=== PATIENT | male | born 1950 | race Caucasian/White ===

== ENCOUNTER 2016-11-20 00:28 | Emergency (ER) | payer MEDICARE, BC ==
[~2016-11-20] VITALS: Ht 182.9 cm; Wt 89.5 kg
[~2016-11-20 00:28] MED LIST: CYCL-319 PO; HYDR-3498 PO
[2016-11-20 01:00] VITALS: Ht 182.9 cm; Wt 89.5 kg
[2016-11-20] MEDS ORDERED: SOD CHLORIDE 0.9% 1,000 ML IV STA (01:45)
[2016-11-20] MEDS ORDERED: ONDANSETRON 4 MG INJ IV STA (01:45)
[2016-11-20] MEDS ORDERED: morphine 4 MG/ML VIAL IM STA (01:45)
[2016-11-20] MEDS ORDERED: LIDOCAINE 2% 20 ML UROJET SYRINGE MM ONE (02:30)
[2016-11-20 02:42] LABS: ADD SCAN DIFF NO
[2016-11-20 02:45] LABS: BASOPHIL # 0.2 10^3/ul (0.0-0.1); BASOPHILS % 1.4 % (0.0-2.0); EOSINOPHILS # 0.2 10^3/ul (0.0-0.5); EOSINOPHILS % 1.6 % (0.0-7.0); HEMATOCRIT 50.8 % (42.0-52.0); HEMOGLOBIN 17.2 g/dl (14.0-18.0); LYMPHOCYTES # 1.7 10^3/ul (0.8-2.9); LYMPHOCYTES % 16.1 % (15.0-51.0); MEAN CORPUSCULAR HEMOGLOBIN 25.2 pg (29.0-33.0); MEAN CORPUSCULAR HGB CONC 33.9 g/dl (32.0-37.0); MEAN CORPUSCULAR VOLUME 74.4 fl (82.0-101.0); MEAN PLATELET VOLUME 11.2 fl (7.4-10.4); MONOCYTE # 0.8 10^3/ul (0.3-0.9); MONOCYTES % 7.1 % (0.0-11.0); NEUTROPHIL # 7.9 10^3/ul (1.6-7.5); NEUTROPHILS % 72.8 % (39.0-77.0); RED BLOOD COUNT 6.83 10^6/ul (4.70-6.10); RED CELL DISTRIBUTION WIDTH 15.6 % (11.5-14.5); WHITE BLOOD COUNT 10.8 10^3/ul (4.8-10.8)
[2016-11-20 02:57] LABS: ALBUMIN 4.8 g/dl (3.3-4.9)
[2016-11-20 02:58] LABS: POTASSIUM 3.9 mmol/L (3.5-5.1)
[2016-11-20 03:00] LABS: ALBUMIN/GLOBULIN RATIO 1.45; BILIRUBIN,INDIRECT 0.8 mg/dl (0-1.1); BILIRUBIN,TOTAL 0.8 mg/dl (0.2-1.3); CALCIUM 10.8 mg/dl (8.4-10.2); CREATININE 0.84 mg/dl (0.61-1.24); TOTAL PROTEIN 8.1 g/dl (6.1-8.1)
[2016-11-20 03:22] VITALS: TEMP 96.5
[2016-11-20 03:40] LABS: PLATELET COUNT 684 10^3/UL (140-415); PLATELET ESTIMATE PLT APPEAR INCREASED
[2016-11-20 03:57] LABS: ADD UMIC NO; URINE BILIRUBIN (Dip) NEGATIVE (NEGATIVE); URINE BLOOD (Dip) NEGATIVE (NEGATIVE); URINE COLOR LT. YELLOW (YELLOW); URINE KETONES (Dip) 40 (NEGATIVE); URINE LEUKOCYTE ESTERASE (Dip) NEGATIVE (NEGATIVE); URINE NITRITE (Dip) NEGATIVE (NEGATIVE); URINE TOTAL PROTEIN (Dip) NEGATIVE (NEGATIVE); URINE UROBILINOGEN (Dip) 0.2 E.U./dL (0.1-1.0)
[2016-11-20] MEDS ORDERED: LIDO30JE8 MM (05:23)
--- NOTE | 2016-11-20 05:38 | ERD ---
ER Documentation Chief Complaint Date/Time DATE: 11/20/16 TIME: 05:32 Chief Complaint Unable to urinate for 1 week. Pelvic pain. Pt has prostate Ca. HPI This 65-year-old male comes in for inability urinate for 1 week. He denies leg weakness and numbness around the pelvic area. Does state that he had an enlarged prostate in the past which was shrunk with heat. He denies fevers chills or painful urination. He does still have dribbling urination. He does have rectal pain and has a history of hemorrhoids. He denies any blood in his stool. ROS All systems reviewed and are negative except as per history of present illness. Medications Home Meds Active Scripts Lidocaine Hcl (Lidocaine Hcl) 30 Ml Jel, 2 ML MM BID for PAIN, #30 30 ml tube. Apply to affected area Prov:CELINA SWANN DO 11/20/16 Hydrocodone Bit-Acetaminophen* ([place]*) 5-325 Mg Tab, 1 TAB PO Q6 Y for PAIN, # 7 TAB Prov:DILAN GONZALEZ I. SALES AND RETAIL MANAGEMENT RECRUITER 08/02/15 Cyclobenzaprine Hcl* (Cyclobenzaprine Hcl*) 10 Mg Tablet, 10 MG PO TID, #15 TAB Prov:DILAN GONZALEZ I. SALES AND RETAIL MANAGEMENT RECRUITER 08/02/15 Reported Medications [unk] No Conflict Check 12/12/11 Allergies Allergies: Coded Allergies: No Known Allergy (Unverified , 08/02/15) PMhx/Soc Medical and Surgical Hx: pt denies Surgical Hx History of Surgery: No Anesthesia Reaction: No Hx Neurological Disorder: No Hx Respiratory Disorders: No Hx Cardiac Disorders: Yes ([place] 2011) Hx Psychiatric Problems: No Hx Miscellaneous Medical Probl: Yes (DM2, HTN, HYPERCHOLESTEROLEMIA, PROSTATE CA) Hx Alcohol Use: No Hx Substance Use: No Hx Tobacco Use: Yes (1 pack/day) Smoking Status: Former smoker Physical Exam Vitals Vital Signs Date Time Temp Pulse Resp B/P Pulse Ox O2 Delivery O2 Flow Rate FiO2 11/20/16 03:22 96.5 93 22 155/86 100 Room Air 11/20/16 01:00 96.5 55 22 170/99 99 Physical Exam Const: [] No acute distress, patient does prefer to stand because he says his bladder area feels less tense that way Head: Atraumatic Eyes: Normal Conjunctiva ENT: Normal External Ears, Nose and Mouth. Neck: Full range of motion..~ No meningismus. Resp: Clear to auscultation bilaterally Cardio: Regular rate and rhythm, no murmurs Abd: Soft, mild suprapubic tenderness with a feeling of fullness in the suprapubic area, no other abdominal tenderness, non distended. Normal bowel sounds Skin: No petechiae or rashes Back: No midline or flank tenderness Ext: No cyanosis, or edema, 5 out of 5 strength bilateral lower extremities, distal pulses intact. No saddle anesthesia Neur: Awake and alert and oriented 3, no focal deficits Result Diagram: 11/20/1621911/20/16 022 Results 24 hrs Laboratory Tests Test 11/20/16 02:20 11/20/16 03:15 Alanine Aminotransferase (ALT/SGPT) 43IU/L Albumin 4.8g/dl Albumin/Globulin Ratio 1.45 Alkaline Phosphatase 99IU/L Anion Gap 24 Aspartate Amino Transf (AST/SGOT) 38IU/L Basophils # 0.210^3/ul Basophils % 1.4% Blood Urea Nitrogen 17mg/dl Calcium Level 10.8mg/dl Carbon Dioxide Level 22mmol/L Chloride Level 108mmol/L Creatinine 0.84mg/dl Direct Bilirubin 0.00mg/dl Eosinophils # 0.210^3/ul Eosinophils % 1.6% Globulin 3.30g/dl Glucose Level 221mg/dl Hematocrit 50.8% Hemoglobin 17.2g/dl Indirect Bilirubin 0.8mg/dl Large Platelets 1+ Lipase 140U/L Lymphocytes # 1.710^3/ul Lymphocytes % 16.1% Mean Corpuscular Hemoglobin 25.2pg Mean Corpuscular Hemoglobin Concent 33.9g/dl Mean Corpuscular Volume 74.4fl Mean Platelet Volume 11.2fl Monocytes # 0.810^3/ul Monocytes % 7.1% Neutrophils # 7.910^3/ul Neutrophils % 72.8% Nucleated Red Blood Cells # 0.010^3/ul Nucleated Red Blood Cells % 0.0/100WBC Platelet Count 89277^3/UL Platelet Estimate PLT APPEAR INCREASED Potassium Level 3.9mmol/L Red Blood Count 6.8310^6/ul Red Cell Distribution Width 15.6% Sodium Level 150mmol/L Total Bilirubin 0.8mg/dl Total Protein 8.1g/dl White Blood Count 10.810^3/ul Urine Bilirubin NEGATIVE Urine Clarity CLEAR Urine Color LT. YELLOW Urine Glucose 0.1%% Urine Hemoglobin NEGATIVE Urine Ketones 40 Urine Leukocyte Esterase NEGATIVE Urine Nitrite NEGATIVE Urine Specific [place] 1.020 Urine Total Protein NEGATIVE Urine Urobilinogen 0.2 E.U./dL Urine pH 5.5 Current Medications Medications (Trade) Dose Ordered Sig/Raeann Route PRN Reason Start Time Stop Time Status Last Admin Dose Admin Sodium Chloride (NS) 1,000 ml @ 1,000 mls/hr Q1H STAT IV 11/20/16 01:45 11/20/16 02:44 DC 11/20/16 03:25 Morphine Sulfate (morphine) 4 mg ONCE STAT IM 11/20/16 01:45 11/20/16 01:48 DC 11/20/16 01:45 Ondansetron HCl (Zofran Inj) 4 mg ONCE STAT IV 11/20/16 01:45 11/20/16 01:48 DC 11/20/16 03:26 Lidocaine (Lidocaine 2% Urojet) 20 ml ONCE ONCE MM 11/20/16 02:30 11/20/16 02:31 DC 11/20/16 03:20 Procedures/MDM Patient with urinary retention likely secondary large prostate. Patient does not want imaging with CT or ultrasound as he recently had an ultrasound. He does have hemorrhoids with scant dried blood with no thrombosis. Aside from his urinary retention was was more likely explained from his history of prostate problems he has no signs of cauda equina syndrome with normal leg strength. Does have mild hypoglycemia and was given a liter of normal saline. Mild hypernatremia. No elevated white count or signs of acute infection. His urinalysis completely negative for any signs of infection. Conde was placed with daily catheter is a regular catheter could not be introduced secondary to some kind of obstruction about the level of the prostate. Patient had immediate relief after 600 cc of urine was immediately returned. Patient does have a urologist with good follow-up and the son says that he will call the urologist first thing in the morning tomorrow to arrange an appointment for this week. I am going to discharge him with that urology follow-up as well as primary care follow-up. The Conde was secured in place and a leg bag is used. Recommended the patient keep it until he sees his urologist. Departure Diagnosis: Primary Impression: External hemorrhoid, bleeding Additional Impressions: Urinary retention Hyperglycemia Condition: Stable Patient Instructions: Hemorrhoids, Urinary Retention, Male Additional Instructions: Call your primary care doctor and urologist TOMORROW for an appointment during the next 1-2 days.See the doctor sooner or return here if your condition worsens before your appointment time. CELINA SWANN DO Nov 20, 2016 05:38
[2016-11-20 05:43] VITALS: BP 131/74; PULSE 87; RESP 16
== END 2016-11-20 05:46 | disposition home or self-care (01) ==
LOC: E/R 00:28
DX: K64.4 Residual hemorrhoidal skin tags (principal); R33.9 Retention of urine, unspecified; E11.65 Type 2 diabetes mellitus with hyperglycemia; I10 Essential (primary) hypertension; F17.210 Nicotine dependence, cigarettes, uncomplicated; Z85.46 Personal history of malignant neoplasm of prostate
CPT/HCPCS: 36415; 80053; 81003; 83690; 85025; 96372; 96374; 99284; J2270; J2405; J7030

== ENCOUNTER 2016-11-30 18:25 | Emergency (ER) | payer MEDICARE, BC ==
[~2016-11-30] VITALS: Ht 175.3 cm; Wt 88.5 kg
[~2016-11-30 18:25] MED LIST changes: +LIDO30JE8 MM
[2016-11-30 19:19] VITALS: Ht 175.3 cm; Wt 88.5 kg
[2016-11-30 19:50] LABS: URINE BLOOD (Dip) POC 2+ (NEGATIVE)
[2016-11-30] MEDS ORDERED: TAMS-14 PO (20:04)
--- NOTE | 2016-11-30 20:06 | ERD ---
ER Documentation Chief Complaint Date/Time DATE: 11/30/16 TIME: 20:05 Chief Complaint urinary retention unable to urinate, hx. proatate problem, hemmorhoids HPI This 66-year-old male complains of inability to urinate today. He had a catheter placed for urinary retention last week and had to remove this morning. He was told to go to ER if he was unable to urinate. Denies fevers, vomiting , additional symptoms. He can treated with chemotherapy for prostate cancer ROS All systems reviewed and are negative except as per history of present illness. Medications Home Meds Active Scripts Tamsulosin Hcl* (Flomax*) 0.4 Mg Cap.er.24h, 0.4 MG PO DAILY, #30 CAP Prov:ALEJANDRA CHOUDHARY MD 11/30/16 Lidocaine Hcl (Lidocaine Hcl) 30 Ml Jel, 2 ML MM BID for PAIN, #30 30 ml tube. Apply to affected area Prov:CELINA SWANN DO 11/20/16 Hydrocodone Bit-Acetaminophen* ([place]*) 5-325 Mg Tab, 1 TAB PO Q6 Y for PAIN, # 7 TAB Prov:DILAN GONZALEZ I. PRESS FEEDER 08/02/15 Cyclobenzaprine Hcl* (Cyclobenzaprine Hcl*) 10 Mg Tablet, 10 MG PO TID, #15 TAB Prov:DILAN GONZALEZ I. PRESS FEEDER 08/02/15 Reported Medications [unk] No Conflict Check 12/12/11 Allergies Allergies: Coded Allergies: No Known Allergy (Unverified , 08/02/15) PMhx/Soc History of Surgery: No Anesthesia Reaction: No Hx Neurological Disorder: No Hx Respiratory Disorders: No Hx Cardiac Disorders: Yes ([place] 2011) Hx Psychiatric Problems: No Hx Miscellaneous Medical Probl: Yes (prostate ca, dm) Hx Alcohol Use: No Hx Substance Use: No Hx Tobacco Use: No Smoking Status: Never smoker Physical Exam Vitals Vital Signs Date Time Temp Pulse Resp B/P Pulse Ox O2 Delivery O2 Flow Rate FiO2 11/30/16 19:19 97.4 81 20 135/81 100 Physical Exam Const: [] Alert, uncomfortable but no apparent distress. Head: Atraumatic Eyes: Normal Conjunctiva ENT: Normal External Ears, Nose and Mouth. Neck: Full range of motion..~ No meningismus. Resp: Clear to auscultation bilaterally Cardio: Regular rate and rhythm, no murmurs Abd: Soft, non tender, non distended. Normal bowel sounds Skin: No petechiae or rashes Back: No midline or flank tenderness Ext: No cyanosis, or edema Neur: Awake and alert Psych: Normal Mood and Affect Results 24 hrs Laboratory Tests Test 11/30/16 19:50 Bedside Urine pH (LAB) 5.5 Bedside Urine Protein (LAB) Negative Bedside Urine Glucose (UA) 0.25% Bedside Urine Ketones (LAB) Negative Bedside Urine Blood 2+ Bedside Urine Nitrite (LAB) Negative Bedside Urine Leukocyte Esterase (L Negative Procedures/MDM Conde catheter was placed in 500 cc of clear yellow urine was obtained. A leg bag was placed. Urine shows negative leukocytes, nitrates. There is hemoglobin and glucose. Patient presents with urinary retention, likely due to prostatism without evidence of UTI, signs of acute abdomen. Discharged home with Conde in place and a prescription of Flomax instructed to follow-up with primary doctor and treating urologist for further evaluation management. Should otherwise recheck for fevers, vomiting, new worsening symptoms. The patient was stable with no new complaints during the ER course. Clinically, there is no current evidence to suggest meningitis, sepsis, acute abdomen, pneumonia, acute coronary syndrome, pulmonary embolism, or any other emergent condition appearing to require further evaluation or hospitalization. The patient should certainly return for any new or worsening symptoms per the aftercare instructions. They should otherwise follow-up with her primary care doctor for reevaluation this week. Departure Diagnosis: Primary Impression: Urinary retention Condition: Stable Patient Instructions: Urinary Retention, Male Additional Instructions: See urology and primary doctor for follow-up to the next week. Recheck sooner for fevers, vomiting, new symptoms ALEJANDRA CHOUDHARY MD Nov 30, 2016 20:06
[2016-11-30 20:42] VITALS: BP 147/88; PULSE 84; RESP 20; TEMP 98.6
== END 2016-11-30 20:37 | disposition home or self-care (01) ==
LOC: FTE 18:25
DX: R33.9 Retention of urine, unspecified (principal); E11.9 Type 2 diabetes mellitus without complications; Z85.46 Personal history of malignant neoplasm of prostate
CPT/HCPCS: 81003

== ENCOUNTER 2016-12-09 19:59 | Emergency (ER) | payer MEDICARE, BC ==
[~2016-12-09] VITALS: Ht 175.3 cm; Wt 86.5 kg
[~2016-12-09 19:59] MED LIST changes: +TAMS-14 PO
[2016-12-09 20:08] VITALS: Ht 175.3 cm; Wt 86.5 kg
[2016-12-09] MEDS ORDERED: morphine 4 MG/ML VIAL ONE (21:21)
[2016-12-09] MEDS ORDERED: morphine 10 MG INJ IM ONE ×3 (21:30)
--- NOTE | 2016-12-09 21:55 | ERD ---
ER Documentation Chief Complaint Date/Time DATE: 12/09/16 TIME: 21:54 Chief Complaint Urinary retention HPI Patient is a 66-year-old male with prostate cancer and urinary retention with indwelling Conde catheter, on treatment for UTI, who presents with obstructed urinary catheter since earlier today. She denies abdominal pain, fever, vomiting. ROS All systems reviewed and are negative except as per history of present illness. Medications Home Meds Active Scripts Ciprofloxacin Hcl* (Ciprofloxacin Hcl*) 500 Mg Tablet, 500 MG PO BID for 14 Days , TAB Prov:OKREY SOUZA MD 12/09/16 Tamsulosin Hcl* (Flomax*) 0.4 Mg Cap.er.24h, 0.4 MG PO DAILY, #30 CAP Prov:ALEJANDRA CHOUDHARY MD 11/30/16 Lidocaine Hcl (Lidocaine Hcl) 30 Ml Jel, 2 ML MM BID for PAIN, #30 30 ml tube. Apply to affected area Prov:CELINA SWANN DO 11/20/16 Hydrocodone Bit-Acetaminophen* ([place]*) 5-325 Mg Tab, 1 TAB PO Q6 Y for PAIN, # 7 TAB Prov:DILAN GONZALEZ I. PAYROLL BENEFITS CLERK 08/02/15 Cyclobenzaprine Hcl* (Cyclobenzaprine Hcl*) 10 Mg Tablet, 10 MG PO TID, #15 TAB Prov:DILAN GONZALEZ I. PAYROLL BENEFITS CLERK 08/02/15 Reported Medications [unk] No Conflict Check 12/12/11 Allergies Allergies: Coded Allergies: No Known Allergy (Unverified , 08/02/15) PMhx/Soc Past medical history: Prostate cancer, diabetes Past surgical history: Denies Social history: Denies tobacco or alcohol. History of Surgery: No Anesthesia Reaction: No Hx Neurological Disorder: No Hx Respiratory Disorders: No Hx Cardiac Disorders: Yes ([place] 2011) Hx Psychiatric Problems: No Hx Miscellaneous Medical Probl: Yes (prostate ca, dm) Hx Alcohol Use: No Hx Substance Use: No Hx Tobacco Use: No Smoking Status: Never smoker FmHx Family History: No coronary disease, No diabetes Physical Exam Vitals Vital Signs Date Time Temp Pulse Resp B/P Pulse Ox O2 Delivery O2 Flow Rate FiO2 12/09/16 20:08 98.7 64 18 119/55 97 Physical Exam Const: Alert, no acute distress Head: Atraumatic Eyes: Normal Conjunctiva, no pallor or icterus ENT: Normal External Ears, Nose and Mouth. Neck: Full range of motion.. Resp: Clear to auscultation bilaterally, no wheezes, no rales Cardio: Regular rate and rhythm, no murmurs Abd: Soft, non tender, non distended. : Normal genitalia, right inguinal hernia extending to scrotum, easily reducible. Conde catheter not draining with sediment and tube. Skin: No petechiae or rashes Back: No midline or flank tenderness Ext: No cyanosis, or edema Neur: Awake and alert, moves 4 extremities appropriately, cranial nerves II through XII intact bilaterally. Psych: Normal Mood and Affect Results 24 hrs Laboratory Tests Test 12/09/16 21:21 12/09/16 22:18 12/09/16 22:30 Bedside Glucose 254mg/dL Bedside Urine pH (LAB) 5.5 Bedside Urine Protein (LAB) 3+ Bedside Urine Glucose (UA) 0.50% Bedside Urine Ketones (LAB) 4+ Bedside Urine Blood 3+ Bedside Urine Nitrite (LAB) Positive Bedside Urine Leukocyte Esterase (L 1+ Urine Color YELLOW Urine Clarity CLOUDY Urine pH 6.0 Urine Specific [place] 1.025 Urine Ketones 40 Urine Nitrite POSITIVE Urine Bilirubin NEGATIVE Urine Urobilinogen 1.0 E.U./dL Urine Leukocyte Esterase 2+ Urine Microscopic RBC >200/HPF Urine Microscopic WBC >200/HPF Urine Transitional Epithelial Cells MODERATE Urine Uric Acid Crystals FEW Urine Bacteria MANY Urine Hemoglobin 3+ Urine Glucose 0.5%% Urine Total Protein 2+ Current Medications Medications (Trade) Dose Ordered Sig/Raeann Route PRN Reason Start Time Stop Time Status Last Admin Dose Admin Morphine Sulfate (morphine) 4 mg STK-MED ONCE .ROUTE 12/09/16 21:21 12/09/16 21:22 DC Morphine Sulfate (morphine) 4 mg ONCE ONCE IM 12/09/16 21:30 12/09/16 21:31 DC Morphine Sulfate (morphine) 4 mg ONCE ONCE IM 12/09/16 21:30 12/09/16 21:31 DC Morphine Sulfate 4 mg 4 mg ONCE ONCE IM 12/09/16 21:30 12/09/16 21:31 DC Sodium Chloride (NS) 1,000 ml @ 1,000 mls/hr Q1H STAT IV 12/09/16 22:55 12/09/16 23:54 12/09/16 23:15 Insulin Human Lispro 6 unit 6 unit ONCE STAT SC 12/09/16 22:55 12/09/16 22:58 DC 12/09/16 23:17 Ceftriaxone Sodium (Rocephin) 50 ml @ 100 mls/hr ONCE ONCE IVPB 12/09/16 23:00 12/09/16 23:29 DC Miscellaneous Information 1 ea NOTE XX 12/09/16 23:00 Glucose (Glutose) 15 gm Q15M PRN PO DECREASED GLUCOSE 12/09/16 23:00 Glucose (Glutose) 22.5 gm Q15M PRN PO DECREASED GLUCOSE 12/09/16 23:00 Dextrose (D50w Syringe) 25 ml Q15M PRN IV DECREASED GLUCOSE 12/09/16 23:00 Dextrose (D50w Syringe) 50 ml Q15M PRN IV DECREASED GLUCOSE 12/09/16 23:00 Glucagon (Glucagen) 1 mg Q15M PRN IM DECREASED GLUCOSE 12/09/16 23:00 Glucose (Glutose) 15 gm Q15M PRN BUCCAL DECREASED GLUCOSE 12/09/16 23:00 Procedures/MDM MDM: Patient is a 66-year-old male with prostate cancer and indwelling Conde catheter due to urinary obstruction. He presents to the ER with obstructed Conde catheter. Conde was replaced and is draining appropriately. There is evidence of a urinary tract infection. The patient states that he is on antibiotics, but cannot state what antibiotics he is taking. There is no evidence of recent visit with prescription of antibiotics from this hospital. UA also shows 4+ ketones, and the patient's fingerstick glucose is greater than 250. Although he has normal vital signs, this raises concern for DKA. Labs were sent to evaluate for DKA or other electrolyte abnormality, and IV fluids, antibiotics and subcutaneous insulin were given. If the patient does not have evidence of DKA, he can be discharged home with oral antibiotics. If he has evidence of DKA or other electrolyte abnormality requiring further care or admission, Dr. Hinkle was given sign out and will assume care. I have advised the patient that if he goes home, he should follow up on urine culture in 2-3 days, and return to the ER for fever, vomiting or other symptoms. Departure Diagnosis: Primary Impression: Obstructed Conde catheter Additional Impressions: UTI (urinary tract infection) Hyperglycemia Condition: Stable KOREY SOUZA MD Dec 09, 2016 21:55
[2016-12-09 22:19] LABS: URINE BLOOD (Dip) POC 3+ (NEGATIVE)
[2016-12-09] MEDS ORDERED: SOD CHLORIDE 0.9% 1,000 ML IV STA (22:55)
[2016-12-09] MEDS ORDERED: INSULIN LISPRO 100 UNIT/ML VIAL SC STA (22:55)
[2016-12-09] MEDS ORDERED: CEFTRIAXONE 2 GM/50 ML (PMX) 50 ML IVPB ONE (23:00)
[2016-12-09] MEDS ORDERED: GLUCAGON 1 MG INJ IM PRN (23:00)
[2016-12-09] MEDS ORDERED: DEXTROSE 50% 50 ML SYRINGE IV PRN ×2 (23:00)
[2016-12-09] MEDS ORDERED: GLUCOSE GEL 15 GRAM TUBE PO PRN ×2 (23:00)
[2016-12-09] MEDS ORDERED: GLUCOSE GEL 15 GRAM TUBE BUCCAL PRN (23:00)
[2016-12-09] MEDS ORDERED: CIPR500T4 PO (23:02)
[2016-12-09 23:03] LABS: ADD UMIC YES; URINE BILIRUBIN (Dip) NEGATIVE (NEGATIVE); URINE BLOOD (Dip) 3+ (NEGATIVE); URINE KETONES (Dip) 40 (NEGATIVE); URINE LEUKOCYTE ESTERASE (Dip) 2+ (NEGATIVE); URINE NITRITE (Dip) POSITIVE (NEGATIVE); URINE TOTAL PROTEIN (Dip) 2+ (NEGATIVE); URINE UROBILINOGEN (Dip) 1.0 E.U./dL (0.1-1.0)
[2016-12-09 23:12] LABS: URINE COLOR YELLOW (YELLOW)
[2016-12-09 23:13] LABS: BACTERIA,URINE MANY; TRANSITIONAL EPI CELLS,URINE MODERATE; URIC ACID CRYSTALS,URINE FEW; URINE RBCS >200 /HPF (0)
[2016-12-09 23:45] LABS: ADD SCAN DIFF NO
[2016-12-09 23:47] LABS: BASOPHIL # 0.1 10^3/ul (0.0-0.1); BASOPHILS % 0.8 % (0.0-2.0); EOSINOPHILS # 0.1 10^3/ul (0.0-0.5); EOSINOPHILS % 0.8 % (0.0-7.0); HEMATOCRIT 42.2 % (42.0-52.0); HEMOGLOBIN 13.4 g/dl (14.0-18.0); LYMPHOCYTES # 0.6 10^3/ul (0.8-2.9); LYMPHOCYTES % 8.1 % (15.0-51.0); MEAN CORPUSCULAR HEMOGLOBIN 24.3 pg (29.0-33.0); MEAN CORPUSCULAR HGB CONC 31.8 g/dl (32.0-37.0); MEAN CORPUSCULAR VOLUME 76.4 fl (82.0-101.0); MEAN PLATELET VOLUME 11.1 fl (7.4-10.4); MONOCYTE # 0.5 10^3/ul (0.3-0.9); MONOCYTES % 6.8 % (0.0-11.0); NEUTROPHIL # 6.5 10^3/ul (1.6-7.5); NEUTROPHILS % 82.9 % (39.0-77.0); PLATELET COUNT 436 10^3/UL (140-415); RED BLOOD COUNT 5.52 10^6/ul (4.70-6.10); RED CELL DISTRIBUTION WIDTH 15.3 % (11.5-14.5); WHITE BLOOD COUNT 7.8 10^3/ul (4.8-10.8)
[2016-12-10 00:05] LABS: CHLORIDE 101 mmol/L (97-110); POTASSIUM 4.2 mmol/L (3.5-5.1); SODIUM 139 mmol/L (135-144)
[2016-12-10 00:07] LABS: CREATININE 0.82 mg/dl (0.61-1.24)
[2016-12-10 00:08] LABS: ANION GAP 17 (8-16); BLOOD UREA NITROGEN 13 mg/dl (7-20); CALCIUM 9.1 mg/dl (8.4-10.2); CARBON DIOXIDE 25 mmol/L (21-31); GLUCOSE 248 mg/dl (70-220)
[2016-12-10 01:10] LABS: ACETONE NEGATIVE (NEGATIVE)
--- NOTE | 2016-12-10 01:55 | EN ---
Date/Time of Note Date/Time of Note DATE: 12/10/16 TIME: 01:52 ER Progress Note The patient was evaluated by Dr Uribe, who was side the patient out to me pending on the labs because of high glucose of 254. According to him, if the labs are unremarkable, patient can be discharged as written by him. The lab only showed mild diabetic hyperglycemia that was already treated, not HHS nor DKA. She will be discharged as written by SANIA Perez MD Dec 10, 2016 01:55
[2016-12-10 03:04] VITALS: BP 135/81; PULSE 79; RESP 18; TEMP 98.4
== END 2016-12-10 03:06 | disposition home or self-care (01) ==
LOC: E/R 19:59
DX: R33.9 Retention of urine, unspecified (principal); N39.0 Urinary tract infection, site not specified; E11.65 Type 2 diabetes mellitus with hyperglycemia
CPT/HCPCS: 36415; 80048; 81001; 82010; 82962; 85025; 87086; 96372; 96374; 99284; J0696; J1815; J2270; J7030; 81003

== ENCOUNTER 2017-01-03 06:08 | Emergency (ER) | payer MEDICARE, BC ==
[~2017-01-03] VITALS: Ht 182.9 cm; Wt 90.0 kg
[~2017-01-03 06:08] MED LIST changes: +CIPR500T4 PO
[2017-01-03 06:13] VITALS: Ht 182.9 cm; Wt 90.0 kg
[2017-01-03 07:10] LABS: ADD SCAN DIFF NO
[2017-01-03 07:20] LABS: ABNORMAL IP MESSAGE 1; BASOPHIL # 0.1 10^3/ul (0.0-0.1); BASOPHILS % 1.2 % (0.0-2.0); EOSINOPHILS % 0.5 % (0.0-7.0); HEMATOCRIT 42.5 % (42.0-52.0); HEMOGLOBIN 13.8 g/dl (14.0-18.0); LYMPHOCYTES # 0.4 10^3/ul (0.8-2.9); LYMPHOCYTES % 4.4 % (15.0-51.0); MEAN CORPUSCULAR HEMOGLOBIN 24.1 pg (29.0-33.0); MEAN CORPUSCULAR HGB CONC 32.5 g/dl (32.0-37.0); MEAN CORPUSCULAR VOLUME 74.3 fl (82.0-101.0); MEAN PLATELET VOLUME 11.2 fl (7.4-10.4); MONOCYTE # 0.7 10^3/ul (0.3-0.9); MONOCYTES % 8.2 % (0.0-11.0); NEUTROPHIL # 7.2 10^3/ul (1.6-7.5); PLATELET COUNT 524 10^3/UL (140-415); RED BLOOD COUNT 5.72 10^6/ul (4.70-6.10); RED CELL DISTRIBUTION WIDTH 14.5 % (11.5-14.5); WHITE BLOOD COUNT 8.4 10^3/ul (4.8-10.8)
[2017-01-03 07:32] LABS: INR 1.2; PROTIME 15.3 Sec (12.2-14.2); PT RATIO 1.2
[2017-01-03 07:33] LABS: PARTIAL THROMBOPLASTIN TIME 34.9 Sec (25.0-35.0)
[2017-01-03 07:37] LABS: ALBUMIN 3.9 g/dl (3.3-4.9); ALBUMIN/GLOBULIN RATIO 1.3; CALCIUM 9.3 mg/dl (8.4-10.2); CREATININE 1.17 mg/dl (0.61-1.24); POTASSIUM 4.1 mmol/L (3.5-5.1); TOTAL PROTEIN 6.9 g/dl (6.1-8.1)
[2017-01-03 07:49] LABS: TROPONIN-I 0.014 ng/ml (0.00-0.12)
[2017-01-03] MEDS ORDERED: HYDR25SU23 PR (07:51)
[2017-01-03] MEDS ORDERED: LISI20TA11 PO (07:58)
[2017-01-03] MEDS ORDERED: CLOP75TA27 PO (07:59)
[2017-01-03] MEDS ORDERED: ATEN50TA PO (07:59)
[2017-01-03] MEDS ORDERED: ARIP5TAB7 PO (08:01)
[2017-01-03] MEDS ORDERED: LINA5TAB PO (08:02)
--- NOTE | 2017-01-03 08:14 | ERD ---
ER Documentation Chief Complaint Date/Time DATE: 01/03/17 TIME: 08:14 Chief Complaint BIB RA, FROM HOME, C/O RECTAL PAIN X 2 MO, RECTAL BLEED THIS AM. HPI Patient is a 66-year-old male with diabetes who presents with rectal bleeding. The patient said the bleeding started this a.m. He has a history of hemorrhoids. He is having pain in his rectum as well. He said that he has never had bleeding like this before. He said that it was bright red blood and he was having difficulty getting it to stop. Upon review of old medical records this is the patient's ninth visit to the ER since 2007. ROS All systems reviewed and are negative except as per history of present illness. Medications Home Meds Active Scripts Hydrocortisone Acetate (Anusol-Hc) 25 Mg Supp.rect, 1 SUPP [place] QHS Y for HEMORROID PAIN/ITCHING, #12 SUPP.RECT Prov:ANTONIO BLOUNT MD 01/03/17 Tamsulosin Hcl* (Flomax*) 0.4 Mg Cap.er.24h, 0.4 MG PO DAILY, #30 CAP Prov:ALEJANDRA CHOUDHARY MD 11/30/16 Reported Medications Linagliptin (TRADJENTA) 5 Mg Tablet, 5 MG PO DAILY, TAB 01/03/17 Aripiprazole* (Abilify*) 5 Mg Tab, 5 MG PO DAILY, #30 TAB 01/03/17 Clopidogrel Bisulfate (Clopidogrel) 75 Mg Tablet, 75 MG PO DAILY, #30 TAB 01/03/17 Atenolol* (Atenolol*) 50 Mg Tablet, 50 MG PO DAILY, #30 TAB 01/03/17 Lisinopril* (Lisinopril*) 20 Mg Tablet, 20 MG PO DAILY, #30 TAB 01/03/17 Discontinued Reported Medications [unk] No Conflict Check 12/12/11 Discontinued Scripts Ciprofloxacin Hcl* (Ciprofloxacin Hcl*) 500 Mg Tablet, 500 MG PO BID for 14 Days , TAB Prov:KOREY SOUZA MD 12/09/16 Lidocaine Hcl (Lidocaine Hcl) 30 Ml Jel, 2 ML MM BID for PAIN, #30 30 ml tube. Apply to affected area Prov:CELINA SWANN DO 11/20/16 Hydrocodone Bit-Acetaminophen* ([place]*) 5-325 Mg Tab, 1 TAB PO Q6 Y for PAIN, # 7 TAB Prov:DILAN GONZALEZ I. POUNCING MACHINE OPERATOR 08/02/15 Cyclobenzaprine Hcl* (Cyclobenzaprine Hcl*) 10 Mg Tablet, 10 MG PO TID, #15 TAB Prov:DILAN GONZALEZ I. POUNCING MACHINE OPERATOR 08/02/15 Allergies Allergies: Coded Allergies: ciprofloxacin (Verified Allergy, Severe, 01/03/17) PMhx/Soc History of Surgery: No Anesthesia Reaction: No Hx Neurological Disorder: No Hx Respiratory Disorders: No Hx Cardiac Disorders: Yes (2011) Hx Psychiatric Problems: No Hx Miscellaneous Medical Probl: Yes (prostate ca, dm) Hx Alcohol Use: No Hx Substance Use: No Hx Tobacco Use: No Smoking Status: Never smoker FmHx Family History: diabetes Physical Exam Vitals Vital Signs Date Time Temp Pulse Resp B/P Pulse Ox O2 Delivery O2 Flow Rate FiO2 01/03/17 07:13 Nasal Cannula 2 01/03/17 06:13 99.1 96 20 129/96 96 Physical Exam Const: No acute distress Head: Atraumatic Eyes: Normal Conjunctiva ENT: Normal External Ears, Nose and Mouth. Neck: Full range of motion..~ No meningismus. Resp: Clear to auscultation bilaterally Cardio: Regular rate and rhythm, no murmurs Abd: Soft, non tender, non distended. Normal bowel sounds Skin: No petechiae or rashes Back: No midline or flank tenderness Ext: No cyanosis, or edema Neur: Awake and alert Rectal: External hemorrhoids, rectal exam shows an enlarged prostate and mild amount of blood mixed with brown stool Result Diagram: 01/03/17 0648 01/03/17 0648 Results 24 hrs Laboratory Tests Test 01/03/17 06:48 White Blood Count 8.410^3/ul Red Blood Count 5.7210^6/ul Hemoglobin 13.8g/dl Hematocrit 42.5% Mean Corpuscular Volume 74.3fl Mean Corpuscular Hemoglobin 24.1pg Mean Corpuscular Hemoglobin Concent 32.5g/dl Red Cell Distribution Width 14.5% Platelet Count 62554^3/UL Mean Platelet Volume 11.2fl Neutrophils % 85.0% Lymphocytes % 4.4% Monocytes % 8.2% Eosinophils % 0.5% Basophils % 1.2% Nucleated Red Blood Cells % 0.0/100WBC Neutrophils # 7.210^3/ul Lymphocytes # 0.410^3/ul Monocytes # 0.710^3/ul Eosinophils # 0.010^3/ul Basophils # 0.110^3/ul Nucleated Red Blood Cells # 0.010^3/ul Prothrombin Time 15.3Sec Prothrombin Time Ratio 1.2 INR International Normalized Ratio 1.20 Activated Partial Thromboplast Time 34.9Sec Sodium Level 138mmol/L Potassium Level 4.1mmol/L Chloride Level 106mmol/L Carbon Dioxide Level 24mmol/L Anion Gap 12 Blood Urea Nitrogen 14mg/dl Creatinine 1.17mg/dl Glucose Level 296mg/dl Calcium Level 9.3mg/dl Total Bilirubin 1.0mg/dl Direct Bilirubin 0.00mg/dl Indirect Bilirubin 1.0mg/dl Aspartate Amino Transf (AST/SGOT) 48IU/L Alanine Aminotransferase (ALT/SGPT) 33IU/L Alkaline Phosphatase 89IU/L Troponin I 0.014ng/ml Total Protein 6.9g/dl Albumin 3.9g/dl Globulin 3.00g/dl Albumin/Globulin Ratio 1.30 Current Medications Medications (Trade) Dose Ordered Sig/Raeann Route PRN Reason Start Time Stop Time Status Last Admin Dose Admin Ondansetron HCl (Zofran Inj) 4 mg BRIDGE ORDER PRN IV NAUSEA AND/OR VOMITING 01/03/17 09:00 01/04/17 08:59 Acetaminophen (Tylenol Tab) 650 mg ER BRIDGE PRN PO MILD PAIN/FEVER 01/03/17 09:00 01/04/17 08:59 Lorazepam (Ativan) 1 mg ONCE ONCE IV 01/03/17 09:00 01/03/17 09:01 DC Procedures/MDM EKG read by me: Rate/Rhythm: Sinus tachycardia rate of 106 Intervals: Normal Impression: Sinus tachycardia without ischemia Patient is a 66-year-old male with diabetes and hemorrhoids who presents with rectal bleeding. The patient's hemoglobin was 13 and he does not require transfusion at this time. I was going to admit him for further workup for GI bleed but the patient now wants to leave AGAINST MEDICAL ADVICE. He became loud and belligerent and was yelling at the nursing staff. I already spoke with Dr. Gonzales from the panel team for admission. The patient is adamant that he does not want to stay in the hospital now. The patient will be given instructions to follow-up closely with his primary doctor within 24 hours for reevaluation. He can return to the ER for any worsening symptoms. He understands the risks of leaving AGAINST MEDICAL ADVICE. Departure Diagnosis: Primary Impression: Hemorrhoid Hemorrhoid type: unspecified Qualified Code: K64.9 - Hemorrhoids, unspecified hemorrhoid type Additional Impressions: Hyperglycemia Rectal hemorrhage Condition: Fair Patient Instructions: Hyperglycemia (High Blood Sugar), Rectal Bleed, Stable Referrals: Your doctor Additional Instructions: Call your primary care doctor TOMORROW for an appointment during the next 1-2 days.See the doctor sooner or return here if your condition worsens before your appointment time. ANTONIO BLOUNT MD January 03, 2017 08:14
[2017-01-03] MEDS ORDERED: LORAZEPAM 2 MG INJ IV ONE (09:00)
[2017-01-03] MEDS ORDERED: ACETAMINOPHEN 325 MG TAB PO PRN (09:00)
[2017-01-03] MEDS ORDERED: ONDANSETRON 4 MG INJ IV PRN (09:00)
[2017-01-03 09:05] VITALS: BP 140/78; PULSE 89; RESP 20
== END 2017-01-03 16:35 | disposition left against medical advice (07) ==
LOC: E/R 06:08
DX: K64.9 Unspecified hemorrhoids (principal); E11.65 Type 2 diabetes mellitus with hyperglycemia; R94.31 Abnormal electrocardiogram [ECG] [EKG]; Z79.84 Long term (current) use of oral hypoglycemic drugs; Z85.46 Personal history of malignant neoplasm of prostate
CPT/HCPCS: 36415; 80053; 84484; 85025; 85610; 85730; 86850; 86900; 86901; 93005; 96374; 99284; J2060